=== PATIENT | female | born 1970 | race Caucasian/White ===

== ENCOUNTER 2017-11-15 10:15 | Emergency (ER) | payer SELFPAY ==
[2017-11-15 12:00] VITALS: BP 139/84
--- NOTE | 2017-11-15 12:03 | UC ---
FLU HPI - History of Current Complaint Chief Complaint: UCRespiratory Stated Complaint: FLU SYMPTOMS Time Seen by Provider: 11/15/17 12:03 Hx Obtained From: Patient Hx Last Menstrual Period: Uterine Ablation Onset/Duration: Sudden Onset Severity Currently: Moderate Severity Initially: Moderate Pain Scale Used: 0-10 Numeric - 5 - Allergy/Home Medications Allergies/Adverse Reactions: Allergies Allergy/AdvReac Type Severity Reaction Status Date / Time Sumatriptan [From Imitrex] Allergy INCREASE Verified 11/15/17 11:54 HEADACHES Home Medications: Home Medications Phenylephrine-Chlorpheniramine [Frida-[place] Plus Cold &] 2 cap PO ONCE PRN 12/02 [History Confirmed 11/15/17] PMH/Surg Hx/FS Hx/Imm Hx - Surgical History Surgical History: Yes Surgery Procedure, Year, and Place: EYES-GLAUCOMA, uterine ablasion - Family History Known Family History: Positive: Hypertension, Blood Disorder - Social History Alcohol Use: None Substance Use Type: None Smoking Status (MU): Heavy Every Day Tobacco Smoker Type: Cigarettes Amount Used/How Often: 1 PPD Length of Time of Smoking/Using Tobacco: 31 Years Have You Smoked in the Last Year: Yes Household Exposure Type: Cigarettes - Immunization History Most Recent Influenza Vaccination: Not this Season Review of Systems Constitutional: Negative Skin: Negative Eyes: Negative ENT: Sore Throat, Ear Ache, Nasal Discharge, Sinus Congestion, Sinus Pain/ Tenderness Respiratory: Cough Cardiovascular: Negative Gastrointestinal: Negative Genitourinary: Negative Motor: Negative Neurovascular: Negative Musculoskeletal: Negative Neurological: Negative Psychological: Negative All Other Systems Reviewed And Are Negative: Yes Physical Exam Triage Information Reviewed: Yes Vital Signs: Initial Vital Signs Temp 37.8 C 11/15/17 11:55 Pulse 88 11/15/17 11:55 Resp 20 11/15/17 11:55 BP 139/84 11/15/17 11:55 Pulse Ox 98 11/15/17 11:55 Vital Signs Reviewed: Yes Eye Exam: Normal ENT: Positive: Pharyngeal erythema, Nasal congestion, Nasal drainage, Tonsillar swelling, Sinus tenderness Dental Exam: Normal Neck exam: Normal Neck: Positive: 1 Respiratory Exam: Normal Cardiovascular Exam: Normal Abdominal Exam: Normal Musculoskeletal Exam: Normal Neurological Exam: Normal Psychological Exam: Normal Skin Exam: Normal Flu Course/Dx - Differential Dx/Diagnosis Provider Diagnoses: cough. influenza Discharge - Discharge Plan Condition: Stable Disposition: HOME Prescriptions: Guaifenesin-Codeine [Cheratussin AC] 1 teasp PO Q8H PRN #120 ml MDD 15 ml PRN Reason: Cough LoraTADine TAB(NF) [Claritin 10 MG TAB(NF)] 10 mg PO DAILY #30 tab Magic M W2 Toño/Maal/Nyst/Lido* 5 ml SWISH SPIT QID PRN #120 ml PRN Reason: Pain Oseltamivir CAP* [Tamiflu CAP*] 75 mg PO BID #10 cap Patient Education Materials: Influenza (ED) Referrals: Denisse Sol PA [Primary Care Provider] -
== END 2017-11-15 12:36 | disposition home or self-care (01) ==
LOC: UCCORT 10:15
DX: J11.1 Influenza due to unidentified influenza virus with other respiratory manifestations (principal); R05 Cough; Z88.8 Allergy status to other drugs, medicaments and biological substances; F17.210 Nicotine dependence, cigarettes, uncomplicated
CPT/HCPCS: 87502; 99212; G0463

== ENCOUNTER 2018-11-14 14:48 | Emergency (ER) | payer OTHER ==
[2018-11-14 15:28] VITALS: BP 147/82
--- NOTE | 2018-11-14 16:59 | UC ---
Throat Pain/Nasal Jelani HPI - HPI Summary HPI Summary: Pt presents with sudden onset of "hoarse voice" and right side throat pain X 4 days. - History of Current Complaint Chief Complaint: UCGeneralIllness Stated Complaint: SORE THROAT Time Seen by Provider: 11/14/18 16:55 Hx Obtained From: Patient Hx Last Menstrual Period: Uterine Ablation ?: No Onset/Duration: Sudden Onset Severity: Moderate Pain Intensity: 8 Cough: None Associated Signs & Symptoms: Positive: Dysphagia, Hoarseness, Fever Related History: Smoking - Epiglottits Risk Factors Epiglottis Risk Factors: Negative - Allergies/Home Medications Allergies/Adverse Reactions: Allergies Allergy/AdvReac Type Severity Reaction Status Date / Time sumatriptan [From Imitrex] Allergy Headache Verified 11/14/18 15:29 PMH/Surg Hx/FS Hx/Imm Hx Previously Healthy: Yes - Surgical History Surgical History: Yes Surgery Procedure, Year, and Place: EYES-GLAUCOMA, uterine ablasion - Family History Known Family History: Positive: Hypertension, Blood Disorder - Social History 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 Lives: With Family Alcohol Use: None Substance Use Type: None Smoking Status (MU): Heavy Every Day Tobacco Smoker Type: Cigarettes Amount Used/How Often: 1 PPD Length of Time of Smoking/Using Tobacco: 31 Years Have You Smoked in the Last Year: Yes Household Exposure Type: Cigarettes - Immunization History Most Recent Influenza Vaccination: Not this Season Review of Systems All Other Systems Reviewed And Are Negative: Yes Constitutional: Positive: Fever, Fatigue Skin: Positive: Negative Eyes: Positive: Negative ENT: Positive: Sore Throat Respiratory: Positive: Negative Cardiovascular: Positive: Negative Gastrointestinal: Positive: Negative Genitourinary: Positive: Negative Motor: Positive: Negative Neurovascular: Positive: Negative Musculoskeletal: Positive: Myalgia Neurological: Positive: Headache Psychological: Positive: Negative Is Patient Immunocompromised?: No Physical Exam Triage Information Reviewed: Yes Appearance: Ill-Appearing Vital Signs: Initial Vital Signs Temp 98.5 F 11/14/18 15:25 Pulse 72 11/14/18 15:25 Resp 16 11/14/18 15:25 BP 147/82 11/14/18 15:25 Pulse Ox 100 11/14/18 15:25 Vital Signs Reviewed: Yes Eye Exam: Normal ENT: Positive: Pharyngeal erythema, TM bulging - bilateral, TM dull - bilateral Dental Exam: Normal Neck exam: Normal Respiratory Exam: Normal Cardiovascular Exam: Normal Musculoskeletal Exam: Normal Neurological Exam: Normal Psychological Exam: Normal Skin Exam: Normal Throat Pain/Nasal Course/Dx - Differential Dx/Diagnosis Differential Diagnosis/HQI/PQRI: Pharyngitis, Tonsillitis, URI Provider Diagnosis: Otitis media of both ears, Laryngitis Discharge - Sign-Out/Discharge Documenting (check all that apply): Patient Departure All imaging exams completed and their final reports reviewed: No Studies - Discharge Plan Condition: Stable Disposition: HOME Prescriptions: Amoxicillin PO (*) [Amoxicillin 500 MG CAP*] 500 mg PO Q12H #20 cap predniSONE TAB* [Deltasone 10 MG TAB*] 30 mg PO DAILY #12 tab Patient Education Materials: Pharyngitis (ED), Ear Infection (ED) Referrals: Denisse Sol PA [Primary Care Provider] - As Soon As Possible - Billing Disposition and Condition Condition: STABLE Disposition: Home
== END 2018-11-14 17:05 | disposition home or self-care (01) ==
LOC: UCCORT 14:48
DX: H66.93 Otitis media, unspecified, bilateral (principal); J04.0 Acute laryngitis; Z88.8 Allergy status to other drugs, medicaments and biological substances; F17.210 Nicotine dependence, cigarettes, uncomplicated
CPT/HCPCS: 87651; 99212; G0463

== ENCOUNTER 2019-10-29 13:13 | Emergency (ER) | payer SELFPAY ==
[2019-10-29 13:36] VITALS: BP 140/85
--- NOTE | 2019-10-29 13:42 | UC ---
Respiratory Complaint HPI - HPI Summary HPI Summary: 49 year old female present with h/o COPD presents with a complaint of sinus congestion, chills and wheezing, slight cough and feeling feverish for the past day. Additionally, she has noted left ear fullness and positional vertigo over the past month. No associated headache, visual disturbance nor weakness. She has run out of her Symbicort and Albuterol and is requesting a refill. - History of Current Complaint Chief Complaint: UCRespiratory Stated Complaint: CONGESTION, ACHY BODY, FEVER Time Seen by Provider: 10/29/19 13:24 Hx Obtained From: Patient Hx Last Menstrual Period: 2010 Pain Intensity: 0 - Allergies/Home Medications Allergies/Adverse Reactions: Allergies Allergy/AdvReac Type Severity Reaction Status Date / Time oxycodone [From Percocet] Allergy Severe Hives Verified 10/29/19 13:37 sumatriptan [From Imitrex] Allergy Severe Headache Verified 10/29/19 13:37 topiramate [From Topamax] Allergy Severe See Comment Verified 10/29/19 13:37 PMH/Surg Hx/FS Hx/Imm Hx Previously Healthy: Yes Respiratory History: COPD - Surgical History Surgical History: Yes Surgery Procedure, Year, and Place: EYES-GLAUCOMA, uterine ablation, cervical fusion 3 mos ago - Family History Known Family History: Positive: Hypertension, Blood Disorder - Social History 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 Alcohol Use: None Alcohol Amount: monthly Substance Use Type: None Smoking Status (MU): Heavy Every Day Tobacco Smoker Type: Cigarettes Amount Used/How Often: 1 PPD Length of Time of Smoking/Using Tobacco: 35 Years Have You Smoked in the Last Year: Yes Household Exposure Type: Cigarettes - Immunization History Most Recent Influenza Vaccination: Not this Season Review of Systems All Other Systems Reviewed And Are Negative: Yes Constitutional: Positive: Chills - started today, Fatigue Skin: Positive: Negative Eyes: Negative: Blurred Vision, Diplopia ENT: Positive: Nasal Discharge, Sinus Congestion Respiratory: Positive: Cough. Negative: Shortness Of Breath Cardiovascular: Negative: Palpitations, Chest Pain Gastrointestinal: Negative: Abdominal Pain, Vomiting, Diarrhea, Nausea Genitourinary: Positive: Negative Motor: Positive: Negative Neurovascular: Positive: Negative Musculoskeletal: Positive: Negative Neurological: Positive: Other - positional dizziness Is Patient Immunocompromised?: No Physical Exam Triage Information Reviewed: Yes Appearance: Well-Appearing, No Pain Distress, Thin Vital Signs: Initial Vital Signs Temp 99.7 F 10/29/19 13:22 Pulse 72 10/29/19 13:22 Resp 24 10/29/19 13:22 BP 140/85 10/29/19 13:22 Pulse Ox 100 10/29/19 13:22 Vital Signs Reviewed: Yes Eye Exam: Normal ENT: Positive: Hearing grossly normal, Nasal congestion, Other - left TM retracted, right TM normal. Negative: Tonsillar swelling, Tonsillar exudate, Uvula midline Neck: Positive: Supple, Nontender, No Lymphadenopathy, Other: - right anterior scar from recent cervical surgery Respiratory: Positive: Lungs clear - E>I, No respiratory distress. Negative: Crackles, Rhonchi, Wheezing Cardiovascular: Positive: RRR, No Murmur Abdomen Description: Positive: Nontender, Soft Musculoskeletal Exam: Normal Neurological: Positive: Alert, Other: - CN II-XII intact. Sensation to fine touch and strength equal bilaterally upper an lower extremities. No nystagmus. Psychological Exam: Normal Skin Exam: Normal Respiratory Course/Dx - Course Course Of Treatment: She prefers medications that she can take while driving so declined meclizine. She will take Claritin otc instead. I encouraged her to schedule a follow-up appointment with her PCP as she is past due. - Differential Dx/Diagnosis Differential Diagnosis/HQI/PQRI: Exacerbation Of COPD Provider Diagnosis: Upper respiratory infection, Benign positional vertigo Discharge ED - Sign-Out/Discharge Documenting (check all that apply): Patient Departure All imaging exams completed and their final reports reviewed: No Studies - Discharge Plan Condition: Stable Disposition: HOME Prescriptions: Albuterol HFA INHALER* [Ventolin HFA Inhaler*] 2 puff INH Q4H PRN #1 mdi PRN Reason: Sob/Wheezing Budesonide/Formote 80/4.5(NF) [Symbicort 80/4.5 (NF)] 1 puff INH BID #1 mdi Fluticasone NASAL SPRAY 50MCG* [Flonase NASAL SPRAY 50MCG*] 2 spray BOTH NARES DAILY 30 Days #1 btl Patient Education Materials: Vertigo (ED) Referrals: Denisse Sol PA [Primary Care Provider] - Additional Instructions: Take Claritin 10mg daily along with the fluticasone Nasal spray daily for the next month. Follow-up with your Primary Care Physician in the near future. - Billing Disposition and Condition Condition: STABLE Disposition: Home
[2019-10-29 13:47] LABS: Influenza A Molecular NEGATIVE (Negative); Influenza B Molecular NEGATIVE (Negative)
== END 2019-10-29 14:27 | disposition home or self-care (01) ==
LOC: UCCORT 13:13
DX: J06.9 Acute upper respiratory infection, unspecified (principal); H81.10 Benign paroxysmal vertigo, unspecified ear; J44.9 Chronic obstructive pulmonary disease, unspecified; F17.210 Nicotine dependence, cigarettes, uncomplicated; Z88.5 Allergy status to narcotic agent; Z88.8 Allergy status to other drugs, medicaments and biological substances
CPT/HCPCS: 99212; G0463